=== PATIENT | female | born 1990 | race Two or more races ===

== ENCOUNTER 2024-10-13 18:29 | Emergency (ER) | payer BC ==
[~2024-10-13] VITALS: Ht 165.1 cm; Wt 71.7 kg
[2024-10-13] MEDS ORDERED: KETOROLAC TROMETHAMINE 30 MG VIAL IM ONE (19:45)
[2024-10-13] MEDS ORDERED: CEFTRIAXONE SODIUM 1,000 MG VIAL IM ONE (19:45)
[2024-10-13] MEDS ORDERED: TETANUS & DIPHTHERIA TOX,ADULT 0.5 ML VIAL IM ONE (19:45)
[2024-10-13] MEDS ORDERED: TETANUS DIPHTHERIA TOX. ADSOR 5 ML VIAL IM ONE (21:20)
[2024-10-13] MEDS ORDERED: CEFTRIAXONE SODIUM 1,000 MG VIAL ONE (21:20)
== END 2024-10-13 21:56 | disposition home or self-care (01) ==
LOC: ER 18:31
DX: S61.301A Unspecified open wound of left index finger with damage to nail, initial encounter (principal); W22.8XXA Striking against or struck by other objects, initial encounter; Y93.89 Activity, other specified; Y92.89 Other specified places as the place of occurrence of the external cause